=== PATIENT | female | born 1960 | race Two or more races ===

== ENCOUNTER 2016-12-11 07:47 | Day surgery (SDC) | payer OTHER ==
[2016-12-11] MEDS ORDERED: PROPOFOL 500 MG/50 ML EMU IV ONE (08:11)
[2016-12-11] MEDS ORDERED: LIDOCAINE HCL 1% MPF SOL ONE (08:11)
[2016-12-11] MEDS ORDERED: MIDAZOLAM 2 MG/2 ML SOL ONE ×2 (08:12→09:26)
[2016-12-11] MEDS ORDERED: FENTANYL 100MCG/2ML SOL ONE (08:12)
[2016-12-11] MEDS ORDERED: BUPIVACAINE HCL 0.5% MPF 10 ML SOL ONE (08:18)
[2016-12-11] MEDS ORDERED: LIDOCAINE HCL 2% MPF SOL ONE (08:18)
[2016-12-11] MEDS ORDERED: KETOROLAC TROMETHAMINE 30 MG/ML SOL ONE (11:14)
[2016-12-11 11:26] VITALS: BP 124/63; PULSE 76; RESP 20; TEMP 99.6; O2SAT 91
== END 2016-12-11 12:00 | disposition home or self-care (01) ==
LOC: SURG 07:47
PROVIDERS: ATTEND Orthopaedic Surgery
DX: M65.312 Trigger thumb, left thumb (principal); M65.342 Trigger finger, left ring finger
CPT/HCPCS: 26055 ×2; J1885; J2001; J2250 ×2; J2704; J3010; A6402